=== PATIENT | female | born 1975 | race African-American/Black ===

== ENCOUNTER 2018-05-11 14:55 | Day surgery (SDC) | payer BC, OTHER ==
[~2018-05-11] VITALS: Ht 160 cm; Wt 73.2 kg
[2018-05-11] VITALS (12 sets, daily range): BP systolic 110–147; BP diastolic 59–66; PULSE 66–88; RESP 12–21; Ht 160 cm; Wt 73.2 kg
--- NOTE | 2018-05-11 08:38 | HP ---
Date/Time of Note Date/Time of Note DATE: 05/11/18 TIME: 08:29 Assessment/Plan VTE Prophylaxis SCD contraindicated: low risk/ambulating Pharmacological prophylaxis: NA/contraindicated Pharm contraindication: low risk/ambulating Lines/Catheters IV Catheter Type (from Nrsg): Peripheral IV Central line still needed: No Urinary Cath still in place: No Assessment/Plan Assessment/Plan A: Menometrorrhagia failed medical management. P: HTA HPI/ROS Admit Date/Time Admit Date/Time May 11, 2018 Hx of Present Illness 42 y.o. A2 with a history of menometrorrhagia and a small uterine fibroid who has failed medical management and is here for a hydrothermal ablation. She has had a tubal ligation before. An endometrial biopsy done recently was benign secretory. ROS Constitutional: no complaints Respiratory: no complaints Cardiovascular: no complaints Gastrointestinal: no complaints Musculoskeletal: no complaints Neurologic: no complaints Psychological: no complaints, nl mood/affect PMH/Family/Social Past Medical History Medical History: no pertinent history Medications None. Coded Allergies: No Known Allergy (Unverified , 05/11/18) Past Surgical History Tubal ligation. LEEP. Family History Significant Family History: cancer (maternal and paternal history for endometrial cancer.), hypertension Social History Alcohol Use: occasionally Smoking Status: Never smoker Drug Use: none Exam/Review of Systems Vital Signs Vitals BP 120/80 Exam Constitutional: alert, oriented, well developed Respiratory: clear to auscultation, normal air movement Cardiovascular: regular rate and rhythm, nl pulses Gastrointestinal: soft, non-tender Genitourinary - Female: nl adnexae, nl external genitalia, uterus (normal size with a small fibroid.) Musculoskeletal: nl extremities to inspection, nl gait and stance Neurological: nl mental status, nl speech, nl strength TALIB JAIN MD May 11, 2018 08:38
[~2018-05-11 14:55] MED LIST: CEFAZOLIN 1 GM INJ ONE; DESFLURANE 15 MIN ONE; FENTAnyl 50 MCG/ML VIAL ONE; LACTATED RINGER'S 1,000 ML IV SCH; MIDAZOLAM 1 MG/ML 2 ML INJ ONE; ONDANSETRON 4 MG INJ ONE; PROPOFOL 20 ML ONE
--- NOTE | 2018-05-11 17:34 | PREAC ---
Date/Time of Note Date/Time of Note DATE: 05/11/18 TIME: 17:31 Anesthesia Eval and Record Evaluation Time Pre-Procedure Interview DATE: 05/11/18 TIME: 17:31 Age 42 Sex female NPO: 8 hrs Preoperative diagnosis menorrhagia, uterin fibroid Planned procedure hysterescopy, hydrothermal ablasion Past Medical History Past Medical History: None Surgery & Anesthesia Issues No known issue Meds Anticoagulation: No Beta Silas within 24 hr: No Reason Beta Silas not given: Pt. not on B-Silas Current Medications Lactated Ringer's 1,000 ml @ 125 mls/hr Q8H IV ; Start 05/11/18 at 08:30 Meds reviewed: Yes Allergies Coded Allergies: No Known Allergy (Unverified , 05/11/18) Allergies Reviewed: Yes Labs/Studies Labs Reviewed: Reviewed by anesthesiologist Result Diagram: 05/11/18 1520 05/11/18 1520 Laboratory Tests 05/11/18 15:20 test: Negative Studies: ECG (n/a), CXR (n/a) Pre-procedure Exam Last vitals Vital Signs Date Temp Pulse Resp B/P (MAP) Pulse Ox O2 O2 Flow FiO2 Time Delivery Rate 05/11/18 98.5 79 18 147/65 100 Room Air 15:29 (92) Airway: Adequate mouth opening Mallampati: Mallampati I Teeth: Normal Lung: Normal Heart: Normal ASA Physical Status ASA physical status: 1 Emergency: None Planned Anesthetic General/MAC: LMA, MAC Planned Pain Management Parenteral pain med Pre-operative Attestations Prior to commencing anesthesia and surgery, the patient was re-evaluated, there was verification of: *The patient's identity *The results of appropriate recent lab work and preoperative vital signs *The above evaluation not changing prior to induction *Anesthetic plan, risk benefits, alternative and complications discussed with patient/family; questions answered; patient/family understands, accepts and wishes to proceed. DASIA GMOEZ MD May 11, 2018 17:34
[2018-05-11] MEDS ORDERED: METOCLOPRAMIDE 10 MG INJ ONE ×2 (17:38→20:45)
[2018-05-11] MEDS ORDERED: PROPOFOL 20 ML ONE (17:38)
[2018-05-11] MEDS ORDERED: ONDANSETRON 4 MG INJ ONE (17:38)
[2018-05-11] MEDS ORDERED: KETOROLAC 30 MG INJ ONE (17:39)
[2018-05-11] MEDS ORDERED: ONDANSETRON 4 MG INJ IV PRN (18:00)
[2018-05-11] MEDS ORDERED: MEPERIDINE 25 MG INJ IV PRN (18:00)
[2018-05-11] MEDS ORDERED: DIPHENHYDRAMINE 50 MG INJ IV PRN (18:00)
[2018-05-11] MEDS ORDERED: HYDROmorphONE 1 MG/5 ML IV SYRINGE IV PRN ×3 (18:00)
[2018-05-11] MEDS ORDERED: OXYCODONE/ACETAMINOPHEN (5/325) TAB PO PRN ×2 (18:00)
[2018-05-11] MEDS ORDERED: KETOROLAC 30 MG INJ IV STA (18:17)
[2018-05-11] MEDS ORDERED: METOCLOPRAMIDE 10 MG INJ IV PRN (21:00)
--- NOTE | 2018-05-11 22:05 | PD.PPDC ---
MACHINE OR MACHINERY MECHANIC Discharge Instruction Condition [id number] Patient Condition: [id number] Good Diet [id number] Diet: Motzu7h Resume Regular Diet Activity/Restrictions [id number] Activity: Jmury4a Normal Activity May Shower [id number] Restrictions: [id number] No Sexual Activity Nothing in the Vagina No [place] No Tampons, douche Follow-up Follow-up with Physician: 2 (by phone), Week/Weeks Return to clinic for [id number] [employer]AGE [employer] Instructions: [id number] Fever greater than 101 Chills Worsening abdominal pain Excessive Vaginal Bleeding TALIB JAIN MD May 11, 2018 22:05
--- NOTE | 2018-05-11 22:20 | OPR ---
Date/Time of Note Date/Time of Note DATE: 05/11/18 TIME: 22:05 Operative Report Procedure Date: May 11, 2018 Preoperative Diagnosis Menometrorrhagia. Postoperative Diagnosis Same Operation/Procedure Performed Hysteroscopy with hydrothermal ablation Surgeon see signature line Mobile Tester none Anesthesia Type: general Anesthesiologist: DASIA GOMEZ MD Estimated Blood Loss: none Transfusion none Specimen None Grafts/Implants none Complications none Pt Condition Post Procedure: stable Disposition: PACU Procedure Description A weighted speculum was placed and the cervix was grasped with a tenaculum.The os was dilated and the hysteroscope with HTA sheath was introduced. The tubal ostia were visualized and there were polypoid areas on the doyle bilaterally. The scope was drawn back to the internal os and the heating cycle was initiated. When the cycle was completed and blanching was complete and the fluid cooled the scope was removed. Pressure was applied to the cervix after removing the tenaculum and then the procedure was terminated. Pt was awakened from anesthesia having tolerated the procedure well. TAILB JAIN MD May 11, 2018 22:18
--- NOTE | 2018-05-12 10:46 | PAC ---
Date/Time of Note Date/Time of Note DATE: 05/12/18 TIME: 10:46 Post-Anesthesia Notes Post-Anesthesia Note Last documented vital signs Vital Signs Date Temp Pulse Resp B/P (MAP) Pulse Ox O2 O2 Flow FiO2 Time Delivery Rate 05/11/18 98 70 18 113/64 98 Room Air 20:07 (80) 05/11/18 98.0 19:20 Activity: WNL Respiratory function: WNL Cardiovascular function: WNL Mental status: Baseline Pain reasonably controlled: Yes Hydration appropriate: Yes Nausea/Vomiting absent: No DASIA GOMEZ MD May 12, 2018 10:46
== END 2018-05-11 21:03 | disposition home or self-care (01) ==
LOC: SDS 14:55
PROVIDERS: ATTEND Obstetrics & Gynecology
DX: N92.1 Excessive and frequent menstruation with irregular cycle (principal); D25.9 Leiomyoma of uterus, unspecified
CPT/HCPCS: 58563; 80048; 85025; 85610; 85730; J1170; J1885; J2175; J2250; J2405; J2765; J3010; J0690